=== PATIENT | female | born 1990 | race Caucasian/White ===

== ENCOUNTER → 2021-07-12 | Outpatient (REF) | payer OTHER ==
[~2021-07-12] MED LIST: IBUP80TA PO; MAPA500T2 PO; TYLE167L PO; prenatal vitamins PO
== END ==
LOC: M LAB REF 16:20
PROVIDERS: ATTEND Physician Assistant
DX: R05.9 Cough, unspecified (principal); R50.9 Fever, unspecified

== ENCOUNTER → 2021-12-17 | Outpatient (REF) | LOC: M EMP 11:00 | PROVIDERS: ATTEND Family Medicine | DX: Z11.52 Encounter for screening for COVID-19 (principal) ==